=== PATIENT | female | born 1980 | race American Indian/Alaskan Native ===

== ENCOUNTER 2018-08-16 20:32 | Emergency (ER) | payer SELFPAY ==
[2018-08-16 23:11] VITALS: BP 156/87
[2018-08-16] MEDS ORDERED: TYLENOL PO ONE (23:59)
[2018-08-17 00:33] LABS: Hematocrit 37.1 % (30.3-42.9); Hemoglobin 12.6 gm/dl (10.1-14.3); Mean Corpuscular HGB Conc 34 % (30-34); Mean Corpuscular Volume 92 fl (79-97); Platelet Count 197 K/mm3 (140-440); Red Blood Count 4.04 M/mm3 (3.65-5.03); Red Cell Distribution Width 13.7 % (13.2-15.2)
[2018-08-17 00:51] LABS: BUN/Creatinine Ratio 6; Blood Urea Nitrogen 5 mg/dL (7-17); Calcium 8.8 mg/dL (8.4-10.2); Hemolysis Index 15
[2018-08-17] MEDS ORDERED: ZOFRAN ODT PO ONE (04:10)
[2018-08-17] MEDS ORDERED: TORADOL IM ONE (04:10)
--- NOTE | 2018-08-17 04:15 | Emergency Department Report ---
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 Patient also complains of nausea vomiting which started yesterday. Patient reports headache to frontal region, throbbing constant sensation. She reports headache for the past 10-12 hours. Patient states she is taking all Pain Medication with Minimal Improvement. She Denies Chest Pain, Shortness of Breath, or Diarrhea. ED Review of Systems ROS: Stated complaint: HIGH BP Other details as noted in HPI Constitutional: chills, fever Respiratory: cough. denies: shortness of breath, wheezing Cardiovascular: denies: chest pain, palpitations Gastrointestinal: nausea, vomiting. denies: abdominal pain, diarrhea Musculoskeletal: myalgia Neurological: headache. denies: weakness, paresthesias Psychiatric: denies: anxiety, depression ED Past Medical Hx - Surgical History Hx Cholecystectomy: Yes Additional Surgical History: ectopic - Social History Smoking Status: Never Smoker Substance Use Type: Alcohol - Medications Home Medications: Home Medications Medication Instructions Recorded Confirmed Last Taken Type Albuterol Sulfate [Ventolin HFA] 2 puff IH Q4H PRN #1 hfa.aer.ad 07/02/18 Unknown Rx Azithromycin [Zithromax Z-EVELYN] 250 mg PO DAILY #6 tablet 07/02/18 Unknown Rx predniSONE [Deltasone] 20 mg PO QDAY #5 tab 07/02/18 Unknown Rx traMADol [Ultram] 50 mg PO Q6HR PRN #10 tablet 07/02/18 Unknown Rx Benzonatate [Tessalon Perles] 100 mg PO Q8HR PRN #30 capsule 08/17/18 Unknown Rx Fluticasone [Flonase] 1 spray NS QDAY #1 bottle 08/17/18 Unknown Rx Ibuprofen [Motrin 600 MG tab] 600 mg PO Q8H PRN #15 tablet 08/17/18 Unknown Rx Ondansetron [Zofran Odt] 4 mg PO Q8HR PRN #15 tab.rapdis 08/17/18 Unknown Rx Minor Respiratory Exam - Exam General: Vital signs noted. No distress. Alert and acting appropriately. HEENT: Yes Pharyngeal Erythema (uvula midline), Yes Moist Mucous Membranes, Yes Rhinorrhea (turbinates mildly congested with clear discharge), No Pharyngeal Exudates, No Conjuctival Injection, No Frontal Tenderness, No Maxillary Tenderness Ear: Neither TM Bulge, Neither TM Erythema, Neither EAC Pain, Neither EAC Discharge Neck: Yes Supple, No Adenopathy Lungs: Yes Good Air Exchange, Yes Cough, No Wheezes, No Ronchi, No Stridor, No Labored Respirations, No Retractions, No Use of Accessory Muscles, No Other Abnormal Lung Sounds Heart: Yes Regular, No Murmur Abdomen: Yes Normal Bowel Sounds, No Tenderness, No Peritoneal Signs Skin: No Rash, No Edema Neurologic: Alert and oriented, no deficits. Musculoskeletal: Unremarkable. ED Course Vital Signs 08/16/18 22:45 Temperature 101.7 F H Pulse Rate 106 H Respiratory 16 Rate Blood Pressure 156/87 O2 Sat by Pulse 100 Oximetry ED Medical Decision Making - Lab Data Result diagrams: 08/17/18 00:06 08/17/18 00:06 Lab Results 08/17/18 08/17/18 08/17/18 Range/Units 00:06 00:06 00:06 WBC 4.3 L (4.5-11.0) K/mm3 RBC 4.04 (3.65-5.03) M/mm3 Hgb 12.6 (10.1-14.3) gm/dl Hct 37.1 (30.3-42.9) % MCV 92 (79-97) fl MCH 31 (28-32) pg MCHC 34 (30-34) % RDW 13.7 (13.2-15.2) % Plt Count 197 (140-440) K/mm3 Sodium 132 L (137-145) mmol/L Potassium 3.5 L (3.6-5.0) mmol/L Chloride 98.7 (98-107) mmol/L Carbon Dioxide 21 L (22-30) mmol/L Anion Gap 16 mmol/L BUN 5 L (7-17) mg/dL Creatinine 0.8 (0.7-1.2) mg/dL Estimated GFR > 60 ml/min BUN/Creatinine Ratio 6 % Glucose 114 H (65-100) mg/dL Calcium 8.8 (8.4-10.2) mg/dL Magnesium 1.80 (1.7-2.3) mg/dL Total Creatine Kinase 134 (30-135) units/L HCG, Quant < 2 (0-4) mIU/mL - Medical Decision Making 38 y.o. female that presents with URI symptoms and headache for 4 days. Patient examined by me and stable. No distress noted. Tachycardic and temperature elevated on arrival. Obtained labs. Leukopenia and Hypokalemia on labs, all of the labs are unremarkable. Given Klor-Con 20 mEq by mouth, Zofran ODT to 4 mg by mouth, and Toradol 30 mg IM once while in ER. Viral syndrome and upper respiratory infection. Start Benzonatate, Zofran, Flonase, and ibuprofen. Reviewed results with patient. Discharged home stable. Encouraged to do supportive care for URI. Follow up with Primary Care Provider in 2-3 days. Critical care attestation.: If time is entered above; I have spent that time in minutes in the direct care of this critically ill patient, excluding procedure time. ED Disposition Clinical Impression: Acute viral syndrome Upper respiratory infection Qualifiers: URI type: acute nasopharyngitis (common cold) Qualified Code(s): J00 - Acute nasopharyngitis [common cold] Disposition: TO HOME OR SELFCARE Is pt being admited?: No Does the pt Need Aspirin: No Condition: Stable Instructions: Viral Syndrome (ED), Upper Respiratory Infection (ED), Cold Symptoms (ED) Additional Instructions: Increase fluid intake and rest. Wash hands frequently. Continue taking Tylenol or ibuprofen to control fever. F/U with Primary Care Provider. Return to ER if fever, SOB, or difficulty breathing after 48 hours of supportive care. Prescriptions: Benzonatate [Tessalon Perles] 100 mg PO Q8HR PRN #30 capsule PRN Reason: Cough Fluticasone [Flonase] 1 spray NS QDAY #1 bottle Ibuprofen [Motrin 600 MG tab] 600 mg PO Q8H PRN #15 tablet PRN Reason: Pain Ondansetron [Zofran Odt] 4 mg PO Q8HR PRN #15 tab.rapdis PRN Reason: Nausea And Vomiting Referrals: OBGRISELDAKABHISHEK,EDILBERTOURA, MD [Primary Care Provider] - 3-5 Days [facility] [Outside] - 3-5 Days [facility] [Outside] - 3-5 Days Time of Disposition: 04:30
[2018-08-17] MEDS ORDERED: K-DUR PO ONE ×2 (04:17→04:21)
== END 2018-08-17 04:30 | disposition home or self-care (01) ==
LOC: ED 20:32
DX: J06.9 Acute upper respiratory infection, unspecified (principal); B34.9 Viral infection, unspecified; I10 Essential (primary) hypertension; M79.10 Myalgia, unspecified site; Z90.49 Acquired absence of other specified parts of digestive tract
CPT/HCPCS: 36415; 80048; 82550; 83735; 84702; 85027; 96372; 99283; J1885; Q0162